=== PATIENT | female | born 1945 | race Caucasian/White ===

== ENCOUNTER 2018-12-11 09:21 | Day surgery (SDC) | payer MEDICARE, BC, SELFPAY ==
[2018-12-11 09:30] VITALS: BP 126/77; PULSE 78; RESP 16; TEMP 36.5; O2SAT 97
[2018-12-11] MEDS: Lactated Ringers 1,000 ML 80 ML IV (10:04)
[2018-12-11] MEDS: ceFAZolin 1 GM/50 ML BAG IVPB (10:56)
[2018-12-11] MEDS: Bupivacaine 0.5% Pres-Free 30 ML VIAL (11:00)
[2018-12-11] MEDS: Lidocaine 1% Pres-Free 5 ML VIAL (11:00)
--- NOTE | 2018-12-11 11:34 | W.PM.DSUDISC ---
Discharge Plan Disposition Patient Disposition: HOME Condition: Good Discharge Details Reason For Visit: bunionectomy right foot Attending Provider: Jake Ledesma Primary Care Provider: Maciej Encinas Home Meds and New Rx's Prescriptions: New ibuprofen 600 mg tablet 600 mg PO Q6H PRN (Reason: pain) Qty: 60 RF: 0 hydrocodone-acetaminophen [[place]] 5-325 mg tablet 1 tab PO Q6H PRN (Reason: post op pain) Qty: 7 RF: 0 Continued pravastatin 40 mg Tablet 40 mg PO DAILY RF: 0 lorazepam 0.5 mg Tablet 0.5 mg PO HS RF: 0 lisinopril 10 mg Tablet 10 mg PO DAILY RF: 0 mometasone [Nasonex] 50 mcg/actuation [place],Non-Aerosol 2 spray INTRANASAL DAILY RF: 0 hydrochlorothiazide 25 mg Tablet 25 mg PO DAILY RF: 0 cholecalciferol (vitamin D3) [Vitamin D3] 1,000 unit Capsule 1,000 unit PO DAILY RF: 0 Discharge Instructions Activity:: Activity as Tolerated Remove Dressings/Wound Care:: Do Not Remove Shower/Bathe:: Cover Diet:: Normal Diet Discharge Orders Discharge Orders: Discharge Order (Routine); Ordered 12/11/18 Ordered By: Jake Ledesma DS: Diagnosis Discharge Diagnosis (1) Hallux rigidus of right foot: Start date: 12/11/18 Start time: 11:34 Status: Acute
[2018-12-11 12:00] VITALS: BP 116/70; PULSE 71; RESP 16; TEMP 36.4; O2SAT 100
--- NOTE | 2018-12-11 12:32 | ROE_ITS ---
DATE OF PROCEDURE: December 11, 2018 PREOPERATIVE DIAGNOSIS: Hallux rigidus deformity right foot. POSTOPERATIVE DIAGNOSIS: Same. PROCEDURE: Cheilectomy right first MPJ. SURGEON: Edmond WhitfieldPEstelita. ANESTHESIA: IV general. ANESTHESIA PROVIDER: Za Segura CRNA OPERATIVE INDICATIONS: 73-year-old female with increasing pain associated with rigidity and spurring surrounding the first MPJ of the right foot. She is having difficulty wearing shoes due to pain. S he understands risks and complications of surgery pertaining to pain, scarring, infection, stiffness of the joint, persistent difficulty with shoe gear and ambulation potentially requiring revisional pr ocedures. Informed consent has been obtained. No promises made to the final outcome of surgery. REPORT OF OPERATION: Jessi was brought to the operative suite, placed in the supine position, the right foot prepped and draped in the usual sterile podiatric fashion. A time-out was performed. The right foot was exsanguinated; a well-padded ankle tourniquet inflated 250 mmHg. Attention was directed to the dorsal aspect of the right first MPJ where a curvilinear incision was m larry over the dorsomedial aspect of the first metatarsophalangeal joint. The incision was deepened in controlled depth fashion; hemostasis acquired with electrocautery as needed. Dissection was carried down to the joint capsule. The capsule was incised and the first metatarsophalangeal joint exposed. Large medial dorsal exostosis formations are noted coming from both sides of the joint. With osteo tome and mallet these bony prominences were resected. The dorsal aspect of the first metatarsal head and proximal phalangeal base were also cleaned up. All rough and bony edges were rasped smooth. Co pious irrigation was performed. I felt we resected enough bone to provide comfort and get her back i n her shoes comfortably. The joint capsule was repaired with simple interrupted suture #3-0 Vicryl. The skin was then coapted with #4-0 nylon in a combination of simple and horizontal mattress suture. Four milligrams of dexamethasone phosphate was infused deeply into the wound. Xeroform, gauze fluf f compression dressings applied. The tourniquet was released at seventeen minutes with vascularity r eturning immediately to all toes. Jessi left the OR with vital signs stable, vascular status intac t. Sharp and sponge counts were correct. She will be followed by me in the office next week.
== END 2018-12-11 12:20 | disposition home or self-care (01) ==
PROVIDERS: PCP Internal Medicine; Visit Provider Podiatrist
PROC: (CPT 28292; principal; 2018-12-11 10:15)
DX: M20.21 Hallux rigidus, right foot (principal); I10 Essential (primary) hypertension
CPT/HCPCS: 28289; J0690; J1885; J2405

== ENCOUNTER → 2025-01-24 09:49 | Outpatient (BNVA) | payer MEDICARE, BC, SELFPAY | PROVIDERS: PCP Family Medicine; Referring Provider Family Medicine; Visit Provider Student in an Organized Health Care Education/Training Program | DX: M16.12 Unilateral primary osteoarthritis, left hip (principal); M70.62 Trochanteric bursitis, left hip; S76.012A Strain of muscle, fascia and tendon of left hip, initial encounter; X58.XXXA Exposure to other specified factors, initial encounter | CPT/HCPCS: 99214; 20611; J1010 ==